=== PATIENT | female | born 1990 | race Caucasian/White ===

== ENCOUNTER 2016-10-14 09:11 | Observation (INO) | payer OTHER ==
--- NOTE | ~2016-10-14 | OR ---
Unit #: [id number] #: [id number] Patient: KENYATTA CHACON [id number] [address] [address] [id number] MR#: [id number] NAME: KENYATTA CHACON ROOM: 468 Date of Procedure: 10/14/2016 Admission Date: 10/14/2016 Surgeon: Hernan Hall M.D. : 1990 Attending Physician: Ray Rojas M.D. Primary Care Physician: Primary Care Physician No OPERATIVE REPORT PREOPERATIVE DIAGNOSES Right ureteral stone and hydronephrosis, possible urinary tract infection. POSTOPERATIVE DIAGNOSIS Right ureteral stone and hydronephrosis, possible urinary tract infection. PROCEDURES PERFORMED Cystoscopy, right retrograde pyelogram, stent placement. ANESTHESIA General. DESCRIPTION OF PROCEDURE After informed consent, she was taken to the operative room, placed in general anesthetic, positioned in lithotomy. Her vagina and perineum were prepped and draped in usual sterile fashion. Cystoscopy was performed showing a normal urethra. Her entire bladder was inspected. There were no tumors, no stones, no diverticula. Retrograde pyelogram performed on the right showing a filling defect at the UPJ consistent with her stone in the right ureter 5 mm. A Sensor wire was placed beyond the stone into the collecting system. A 5 x 24 double-J stent was placed over the wire without a tether. The stent was deployed and there was good coil in the bladder and collecting system. A urine specimen was obtained for culture and sensitivity. The plan is to admit to the hospital and have outpatient treatment of her stone. She tolerated the procedure well. Dictated by... Nila Bhatia/modl TD: 10/15/2016 05:52 JOB #: [id number] Unit #: [id number] #: [id number] Patient: KENYATTA CHACON OPERATIVE REPORT X Hernan Hall MD X PROCEDURE OPERATIVE NOTE
--- NOTE | ~2016-10-14 | CT4 ---
[facility] A Service of [facility] / [facility] RADIOLOGY TEXT RESULTS PATIENT: KENYATTA CHACON LOCATION: [facility] [id number] : [birth year] UNIT #: [id number] AGE: [address]: Ray Rojas MD SEX: F ORDER DR: [id number] [facility] [address] [facility]. [place], [place] [address] [id number] MR#: [id number] Acc #: [id number] NAME: KENYATTA CHACON : 1990 SEX: F STUDY DATE/TIME: 10/14/2016 09:56 UNIT: CFTX ROOM: STUDY DESCRIPTION: CT Abd and Pelv Wo Cont Attending Physician: Luz Hurst Pa-C Ordering Physician: Luz Hurst Pa-C Primary Care Physician: Primary Care Physician No MEDICAL IMAGING REPORT This report is preliminary unless electronic signature is present EXAM CT abdomen and pelvis without contrast 10/14/2016 0956 hours HISTORY 26-year-old woman with prior history of kidney stones complaining of right flank pain beginning this morning. COMPARISON CT abdomen and pelvis 05/19/2011. TECHNIQUE Helical noncontrasted images were obtained from the lung bases through the pubic symphysis without oral or intravenous contrast. Sagittal and coronal reconstructions were performed. Total exam DLP 586 mGy-cm. This CT examination was performed with one or more of the following radiation dose reduction techniques: automatic exposure control, adjustment of mA and/or kV according to patient size, and iterative reconstruction. FINDINGS Images through the lung bases are clear. There are no effusions. The distal esophagus is normal. Images through the abdomen without contrast demonstrate a normal appearance to the liver, spleen, pancreas, gallbladder and bile ducts. The adrenal glands are normal. The right kidney demonstrates a punctate stone laterally in the mid right kidney nonobstructing. There is also a punctate stone in the lower pole. There is a stone at the right ureteropelvic junction measuring 5 mm resulting in mild pelvocaliectasis. The right ureter is otherwise decompressed. The left kidney demonstrates no stones or obstruction. There is a retroaortic left renal vein which is a normal anatomic variant. The abdominal aorta is normal in caliber. Stomach, small bowel and colon have a normal noncontrasted appearance. [facility] A Service of [facility] / [facility] RADIOLOGY TEXT RESULTS PATIENT: KENYATTA CHACON LOCATION: [facility] [address] : [birth year] UNIT #: [id number] AGE: [address]: Ray Rojas MD SEX: F ORDER DR: The appendix is normal. CT pelvis demonstrates a normal-appearing anteverted uterus. There is no adnexal mass or free fluid. IMPRESSION 1. There is a 5 mm stone at the right ureteropelvic junction resulting in mild pelvocaliectasis. There is a punctate nonobstructing stone in the upper pole right kidney and in the lower pole right kidney. There are no left renal or ureteral stones. 2. Normal appendix. Dictated by... Susana Monroe M.D. THIS IS AN ELECTRONICALLY VERIFIED REPORT Susana Monroe M.D. at 10/14/2016 2:29 PM CHELLE/luis manuel TD: 10/14/2016 10:51 JOB #: [id number] MEDICAL IMAGING REPORT COPY
[2016-10-14 09:09] LABS: URINE SOURCE CLEAN CATCH
[~2016-10-14 09:11] MED LIST: AMOXICILLIN500 M1 PO; BIRTH CONTROL PILL PO; CIPRO PO; CORTISPORIN-TC10 M1 AD; FLEXERIL10 MG PO; MEDROL DOSEPAK4 MG PO; NAPROSYN500 MG PO; PHENERGAN25 MG PO; VICODIN PO; ZYRTEC-D T1 TAB.SR1 PO
[2016-10-14 09:13] LABS: URINE APPEARANCE CLOUDY; URINE BILIRUBIN NEG (NEG); URINE BLOOD 3+ (NEG); URINE COLOR YELLOW; URINE GLUCOSE NEG (NEG); URINE KETONE NEG (NEG); URINE LEUKOCYTE ESTERASE 1+ (NEG); URINE NITRATE NEG (NEG); URINE PROTEIN 2+ (NEG); URINE SPECIFIC GRAVITY 1.023 (1.003-1.035); URINE UROBILINOGEN 0.2 MG/DL (NEG)
[2016-10-14 09:15] LABS: CULTURE INDICATED? YES; URBCS1 AUWI INNUM /[HPF] (0-2); URINE BACTERIA AUWI 1+ (NEGATIVE); URINE SQUAMOUS EPITHELIAL CELL OCC /[HPF]; UWBCS1 AUWI 25-50 (0-5)
[2016-10-14 11:27] LABS: BASOPHIL% 0.4 % (0-2.5); EOSINOPHIL# 0.1 X10e3 (0-0.7); EOSINOPHIL% 1.3 % (0.0-7.0); HEMATOCRIT 42.4 % (35.0-45.0); HEMOGLOBIN 14.2 gm/dL (12.0-16.0); LYMPHOCYTE# 2.4 X10e3 (1.0-3.5); LYMPHOCYTE% 23.8 % (17.0-45.0); MEAN CELL VOLUME 89.4 FL (83-96); MEAN CORPUSCULAR HEMOGLOBIN 29.9 PG (28-34); MEAN CORPUSCULAR HGB CONC 33.4 g/dL (30-36); MEAN PLATELET VOLUME 11.7 FL (6.5-11.5); MONOCYTE% 9.5 % (3.0-12.0); NEUTROPHIL# 6.6 X10e3 (1.5-7.1); RED BLOOD COUNT 4.75 X10e (3.90-5.30); RED CELL DISTRIBUTION WIDTH 13.2 % (11.0-15.5); WHITE BLOOD COUNT 10.1 X10e3 (4.0-10.5)
[2016-10-14 11:45] LABS: DIFF IND NO; PLATELET COUNT 170 X10e3 (140-420)
[2016-10-14 12:02] LABS: ALBUMIN SERUM 4.5 g/dL (3.5-5.0); ALKALINE PHOSPHATASE 87 U/L (32-92); ALT (SGPT) 23 U/L (10-40); AST (SGOT) 20 U/L (10-42); BILIRUBIN,TOTAL 0.6 mg/dL (0.2-2.0); BLOOD UREA NITROGEN 13 mg/dL (9-23); BUN/CREATININE RATIO 16.25; CALCIUM SERUM 10.4 mg/dL (8.4-10.2); CARBON DIOXIDE 26 mmol/L (22-31); CHLORIDE 104 mmol/L (100-111); CREATININE SERUM 0.8 mg/dL (0.6-1.4); GLOM FILT RATE Estimated ABOVE60 mL/min (>60); GLUCOSE FASTING 95 mg/dL (70-110); POTASSIUM 3.7 mmol/L (3.5-5.1); PROTEIN TOTAL SERUM 7.2 g/dL (6.0-8.3); SODIUM 138 mmol/L (135-145)
[2016-10-14] MEDS ORDERED: NO MEDICATIONS (16:09)
[2016-10-14 18:46] LABS: URINE BILIRUBIN NEG (NEG); URINE BLOOD 3+ (NEG); URINE COLOR RED; URINE GLUCOSE NEG (NEG); URINE KETONE NEG (NEG); URINE LEUKOCYTE ESTERASE TRACE (NEG); URINE NITRATE NEG (NEG); URINE PROTEIN NEG (NEG); URINE SPECIFIC GRAVITY 1.026 (1.003-1.035); URINE UROBILINOGEN 0.2 MG/DL (NEG)
[2016-10-14 18:48] LABS: U HYALINE CASTS AUWI 0-2 /[LPF]; URINE BACTERIA AUWI NEG (NEGATIVE); URINE SQUAMOUS EPITHELIAL CELL OCC /[HPF]
[2016-10-14 18:59] LABS: URINE APPEARANCE HAZY
[2016-10-14 19:04] LABS: URBCS1 AUWI 200-300 /[HPF] (0-2); UWBCS1 AUWI 0-2 (0-5)
[2016-10-15] MEDS ORDERED: PYRIDIUM PO (09:44)
[2016-10-15] MEDS ORDERED: BACTRIM DS TABL1 TA1 PO (09:45)
[2016-10-15] MEDS ORDERED: NORCO1 TAB 10/3 PO (09:45)
== END 2016-10-15 10:58 | disposition home or self-care (01) ==
LOC: CED 09:11 → C4C 11:18
PROVIDERS: Physician Assistant Medical; Urology
DX: N13.2 Hydronephrosis with renal and ureteral calculous obstruction (principal); F17.200 Nicotine dependence, unspecified, uncomplicated
CPT/HCPCS: 74176; 80053; 81003; 84703; 85025; 87086; 96365; 96375; 96376; 99285; C2617; G0378; J0696; J1885; J2250; J2405; J3010

== ENCOUNTER → 2016-10-28 | Day surgery (SDC) | payer OTHER ==
[~2016-10-28] MED LIST changes: +BACTRIM DS TABL1 TA1 PO; +NO MEDICATIONS; +NORCO1 TAB 10/3 PO; +PYRIDIUM PO
--- NOTE | ~2016-10-28 | HP ---
Unit #: [id number] #: [id number] Patient: KENYATTA CHACON [id number] [address] [address] [id number] O MR#: [id number] NAME: KENYATTA CHACON ROOM: Age: Sex: F Admission Date: 10/28/2016 : 1990 Attending Physician: Hernan Hall M.D. Primary Care Physician: Primary Care Physician No HISTORY AND PHYSICAL CHIEF COMPLAINT Right flank pain. HISTORY OF PRESENT ILLNESS Ms. Chacon has a history of right ureteral stone. She is status post cystoscopy stent placement. She is here for ureteroscopy and treatment of her stone. PAST MEDICAL HISTORY Cystoscopy with stent placement. MEDICATIONS Pain medicine and antibiotics at home. FAMILY HISTORY Noncontributory. PHYSICAL EXAMINATION VITAL SIGNS: She is afebrile. Vital signs stable. ABDOMEN: Soft without rebound or guarding. She has no CVA tenderness. ASSESSMENT Right ureteral stone. PLAN Right ureteroscopy, laser lithotripsy, basket extraction, stent re-placement. Dictated by Nila Bhatia/david TD: 11/07/2016 19:27 JOB #: [id number] Unit #: [id number] #: [id number] Patient: KENYATTA CHACON HISTORY AND PHYSICAL X Hernan Hall MD X HISTORY AND PHYSICAL
--- NOTE | ~2016-10-28 | OR ---
Unit #: [id number] #: [id number] Patient: KENYATTA CHACON [id number] [address] [address] [id number] O MR#: [id number] NAME: KENYATTA CHACON ROOM: Date of Procedure: 10/28/2016 Admission Date: 10/28/2016 Surgeon: Hernna Hall M.D. : 1990 Attending Physician: Hernan Hall M.D. OPERATIVE REPORT PREOPERATIVE DIAGNOSIS Right ureteral stone. POSTOPERATIVE DIAGNOSIS Right ureteral stone. PROCEDURES PERFORMED Cystoscopy, right ureteroscopy, laser lithotripsy, basket extraction, stent replacement. ANESTHESIA General. DESCRIPTION OF PROCEDURE After informed consent, she was taken to the operative room, placed under general anesthetic, positioned in lithotomy. Her vagina and perineum were prepped and draped in usual sterile fashion. Cystoscopy was performed revealing a normal urethra and bladder. There were no tumors visible. No diverticula. The entire bladder was inspected. She had a stent exiting the right orifice. This was pulled out through the meatus with a grasper. A wire was then cannulated into the stent up to the collecting system. The stent was removed. Flexible ureteroscopy was performed. After ureteral access sheath was placed under direct vision into the ureter, the stone was still in the proximal ureter. A Nitinol basket was used. The stone was extracted without difficulty. Repeat inspection of the ureter and collecting system showed a stone fragment in the collecting system. Using a holmium laser, this was broken up into smaller fragments too small to basket. Repeat inspection of the collecting system on 6 to 7 attempts showed no other visible stones or fragments to be removed. A new stent was placed. It was a 5 x 24 double-J with a tether left attached with deployment. There was good coil in the bladder and in the collecting system. There was a string left attached. The patient will be discharged home. Return to see me in about a week to have the stent removed. Dictated by... Nila Bhatia/hamilton TD: 10/29/2016 04:34 Unit #: [id number] #: [id number] Patient: KENYATTA CHACON JOB #: [id number] OPERATIVE REPORT X Hernan Hall MD PROCEDURE OPERATIVE NOTE
== END | disposition home or self-care (01) ==
LOC: CSUR 10:34
PROVIDERS: Urology
DX: N20.1 Calculus of ureter (principal); Z79.899 Other long term (current) drug therapy; Z90.49 Acquired absence of other specified parts of digestive tract; Z98.890 Other specified postprocedural states
CPT/HCPCS: 82365; 84703; 88300; C1758; C2617; J0690; J2250; J2405; J3010